=== PATIENT | female | born 1995 | race Caucasian/White ===

== ENCOUNTER 2025-01-06 05:29 | Emergency (ER) | payer MEDICAID ==
[2025-01-06 05:48] LABS: APPEARANCE,URINE SLT CLOUDY; GLUCOSE,URINE NEGATIVE (NEGATIVE); OCCULT BLOOD,URINE NEGATIVE (NEGATIVE)
[2025-01-06 05:59] LABS: EPITHELIAL CELLS,URINE MODERATE (NONE-FEW)
[2025-01-06 06:03] LABS: BASOPHILS ABSOLUTE AUTO 0.04 K/uL (0.00-0.20); BASOPHILS PERCENT AUTO 0.4 % (0.0-1.0); EOSINOPHILS ABSOLUTE AUTO 0.27 K/uL (0.00-0.45); EOSINOPHILS PERCENT AUTO 2.8 % (0.0-6.0); IMMATURE GRAN ABSOLUTE AUTO 0.04 K/uL (0.00-0.05); IMMATURE GRAN PERCENT AUTO 0.4 % (0.0-0.4); LYMPHOCYTES ABSOLUTE AUTO 2.18 K/uL (1.00-4.80); LYMPHOCYTES PERCENT AUTO 22.7 % (24.0-44.0); MEAN PLATELET VOLUME 9.6 fL (9.4-12.3); MONOCYTES ABSOLUTE AUTO 0.61 K/uL (0.00-0.80); MONOCYTES PERCENT AUTO 6.3 % (0.0-8.0); NEUTROPHILS ABSOLUTE AUTO 6.47 K/uL (1.80-7.70); NEUTROPHILS PERCENT AUTO 67.4 % (41.0-71.0); NRBC ABSOLUTE 0.00 K/uL (0.00-0.02); NRBC PERCENT 0.0 /100WBC (0.0-0.2); PLATELET COUNT,PLT 314 K/uL (150-400); RED BLOOD CELL COUNT 3.69 M/uL (4.10-5.30); WHITE BLOOD CELL COUNT,WBC 9.61 K/uL (3.9-11.3)
[2025-01-06 06:36] LABS: A/G RATIO 0.7 (0.9-1.6); ALANINE AMINOTRANSFERASE,ALT 27 IU/L (14-63); ASPARTATE AMNIOTRANSFERASE,AST 16 IU/L (15-37); BILIRUBIN TOTAL 0.2 mg/dL (0.2-1.0); BLOOD UREA NITROGEN,BUN 5 mg/dL (7.0-18.0); CARBON DIOXIDE,CO2 23.0 mmol/L (21.0-32.0); CHLORIDE,CL 101 mmol/L (98-107); CREATININE 0.7 mg/dL (0.6-1.0); GLUCOSE RANDOM 104 mg/dL (74-106); POTASSIUM,K 3.7 mmol/L (3.5-5.1); PRO B-TYPE NATRIUR PEPT,BNPPRO 20 pg/mL (0-125); PROTEIN TOTAL,TP 7.2 g/dL (6.4-8.2); SODIUM,NA 136 mmol/L (136-145)
[2025-01-06 06:52] LABS: TSH ULTRASENSITIVE 5.05 uIU/mL (0.36-3.74)
[2025-01-06 06:54] LABS: ESTIMATED GFR 119 mL/min (>60); HCG QUANTITATIVE 14075.0 mIU/mL
[2025-01-06 08:03] LABS: T4 FREE 0.62 ng/dL (0.76-1.46)
== END 2025-01-06 08:17 | disposition home or self-care (01) ==
LOC: MW.ED 05:29
DX: O23.42 Unspecified infection of urinary tract in pregnancy, second trimester (principal); N39.0 Urinary tract infection, site not specified; O99.891 Other specified diseases and conditions complicating pregnancy; R00.2 Palpitations; R20.2 Paresthesia of skin; Z3A.21 21 weeks gestation of pregnancy; Z79.899 Other long term (current) drug therapy; Z86.16 Personal history of COVID-19
CPT/HCPCS: 36415; 76815; 80053; 81001; 83690; 83735; 83880; 84439; 84443; 84484; 84702; 85025; 87086; 93005; 96360; 99285; A9270; J7030; 93010; 99283

== ENCOUNTER 2025-03-09 19:32 | Emergency (ER) | payer MEDICAID ==
[2025-03-09] MEDS: Amoxicillin/Clavulanate K 875-125 MG Tab PO ONE (22:06)
== END 2025-03-09 22:23 | disposition home or self-care (01) ==
LOC: MW.ED 19:32
DX: J06.9 Acute upper respiratory infection, unspecified (principal)
CPT/HCPCS: 71046; 87428; 87651; 99283; A9270

== ENCOUNTER 2025-05-13 23:09 | Emergency (ER) | payer MEDICAID ==
[2025-05-14] MEDS: cefTRIAXone 1 GM in Water For Injection, Sterile 10 ML IVPUSH ONE (00:31)
[2025-05-14 00:58] LABS: BASOPHILS ABSOLUTE AUTO 0.06 K/uL (0.00-0.20); BASOPHILS PERCENT AUTO 0.5 % (0.0-1.0); EOSINOPHILS ABSOLUTE AUTO 0.27 K/uL (0.00-0.45); EOSINOPHILS PERCENT AUTO 2.2 % (0.0-6.0); IMMATURE GRAN ABSOLUTE AUTO 0.07 K/uL (0.00-0.05); IMMATURE GRAN PERCENT AUTO 0.6 % (0.0-0.4); LYMPHOCYTES ABSOLUTE AUTO 2.13 K/uL (1.00-4.80); LYMPHOCYTES PERCENT AUTO 17.7 % (24.0-44.0); MEAN PLATELET VOLUME 10.4 fL (9.4-12.3); MONOCYTES ABSOLUTE AUTO 0.56 K/uL (0.00-0.80); MONOCYTES PERCENT AUTO 4.6 % (0.0-8.0); NEUTROPHILS ABSOLUTE AUTO 8.97 K/uL (1.80-7.70); NEUTROPHILS PERCENT AUTO 74.4 % (41.0-71.0); NRBC ABSOLUTE 0.00 K/uL (0.00-0.02); NRBC PERCENT 0.0 /100WBC (0.0-0.2); PLATELET COUNT,PLT 347 K/uL (150-400); RED BLOOD CELL COUNT 4.23 M/uL (4.10-5.30); WHITE BLOOD CELL COUNT,WBC 12.06 K/uL (3.9-11.3)
[2025-05-14] MEDS: Dexamethasone Sod Phos Preservative Free 10 MG/ML Vial IVPUSH ONE (01:13)
[2025-05-14 01:23] LABS: A/G RATIO 0.5 (0.9-1.6); ALANINE AMINOTRANSFERASE,ALT 20.0 IU/L (14-63); ASPARTATE AMNIOTRANSFERASE,AST 24.0 IU/L (15-37); BILIRUBIN TOTAL 0.3 mg/dL (0.2-1.0); BLOOD UREA NITROGEN,BUN 5.0 mg/dL (7.0-18.0); CARBON DIOXIDE,CO2 23.5 mmol/L (21.0-32.0); CHLORIDE,CL 101.0 mmol/L (98-107); CREATININE 0.7 mg/dL (0.6-1.0); EST CRCL DRUG DOSING (CG) 114.28 mL/min; GLUCOSE RANDOM 89.0 mg/dL (74-106); POTASSIUM,K 4.0 mmol/L (3.5-5.1); PROTEIN TOTAL,TP 7.4 g/dL (6.4-8.2); SODIUM,NA 133.0 mmol/L (136-145)
[2025-05-14 01:39] LABS: ESTIMATED GFR 119.0 mL/min (>60)
== END 2025-05-14 01:22 | disposition home or self-care (01) ==
LOC: MW.ED 23:09
DX: J02.8 Acute pharyngitis due to other specified organisms (principal); Z79.899 Other long term (current) drug therapy
CPT/HCPCS: 36415; 80053; 83690; 85025; 87428; 87651; 96374; 96375; 99283; J0696; J1100

== ENCOUNTER 2025-05-15 19:02 | Inpatient (IN) | payer MEDICAID ==
[2025-05-16] MEDS ORDERED: Sodium Chloride 0.9% 10 ML Syringe FLUSH PRN (01:51)
[2025-05-16] MEDS ORDERED: Butorphanol 1 MG/ML SDV IVPUSH PRN (01:51)
[2025-05-16] MEDS ORDERED: Sodium Chloride 0.9% 2.5 ML Syringe FLUSH PRN (01:51)
[2025-05-16] MEDS ORDERED: Water For Irrigation,Sterile 1,000 ML Container IRR PRN (01:51)
[2025-05-16] MEDS ORDERED: Carboprost Tromethamine 250 MCG/1 mL Vial IM PRN (01:51)
[2025-05-16] MEDS ORDERED: Terbutaline 1 MG/ML SDV SUBCUT PRN (01:58)
[2025-05-16] MEDS: Misoprostol 25 MCG (1/4 of 100 MCG) Tab PO PRN (03:00)
[2025-05-16] MEDS: Lactated Ringers 1,000 ML IV SCH (03:00)
[2025-05-16] MEDS: Misoprostol 25 MCG (1/4 of 100 MCG) Tab VAG PRN (03:05)
[2025-05-16 03:08] LABS: MEAN PLATELET VOLUME 10.2 fL (9.4-12.3); NRBC ABSOLUTE 0.00 K/uL (0.00-0.02); NRBC PERCENT 0.0 /100WBC (0.0-0.2); PLATELET COUNT,PLT 317 K/uL (150-400); RED BLOOD CELL COUNT 4.14 M/uL (4.10-5.30); WHITE BLOOD CELL COUNT,WBC 9.86 K/uL (3.9-11.3)
[2025-05-16 03:30] LABS: A/G RATIO 0.6 (0.9-1.6); ALANINE AMINOTRANSFERASE,ALT 22.0 IU/L (14-63); ASPARTATE AMNIOTRANSFERASE,AST 29.0 IU/L (15-37); BILIRUBIN TOTAL 0.3 mg/dL (0.2-1.0); BLOOD UREA NITROGEN,BUN 7.0 mg/dL (7.0-18.0); CARBON DIOXIDE,CO2 22.7 mmol/L (21.0-32.0); CHLORIDE,CL 103.0 mmol/L (98-107); CREATININE 0.5 mg/dL (0.6-1.0); EST CRCL DRUG DOSING (CG) 159.99 mL/min; GLUCOSE RANDOM 85.0 mg/dL (74-106); POTASSIUM,K 4.4 mmol/L (3.5-5.1); PROTEIN TOTAL,TP 6.8 g/dL (6.4-8.2); SODIUM,NA 136.0 mmol/L (136-145)
[2025-05-16 03:34] LABS: ESTIMATED GFR 129.0 mL/min (>60)
[2025-05-16] MEDS: Ropivacaine HCl/PF 400 MG in Premix Bag 1 BAG EPIDUR SCH (06:25)
[2025-05-16] MEDS ORDERED: ePHEDrine 50 MG/ML SDV IVPUSH PRN (06:29)
[2025-05-16] MEDS ORDERED: dexmedeTOMIDine HCl 200 MCG/2 ML SDV EPIDUR SCH (06:30)
[2025-05-16] MEDS: Oxytocin/0.9 % Sodium Chloride 30 UNIT/500 ML BAG IV SCH (12:19)
[2025-05-16] MEDS: Ondansetron 4 MG/2 ML SDV IVPUSH PRN (13:00)
[2025-05-16] MEDS: Codeine/guaiFENesin 10-100 MG/5 ML Syrup 5 ML Cup PO PRN (13:46)
[2025-05-16] MEDS ORDERED: Aluminum Hydroxide/Magnesium Hydroxide/Simethicone Susp 30 ML Cup PO PRN (16:54)
[2025-05-16] MEDS ORDERED: Lanolin 100% Cream 7 GM Tube TOP PRN (16:54)
[2025-05-16 17:02] LABS: PH,UMBILICAL ARTERIAL 7.2 (7.18-7.38); PH,UMBILICAL VENOUS 7.32 (7.25-7.45)
[2025-05-16] MEDS: Amoxicillin/Clavulanate K 875-125 MG Tab PO SCH (20:54)
[2025-05-16] MEDS: Witch Hazel Medicated Pads 40/Jar TOP PRN (20:55)
[2025-05-16] MEDS: Benzocaine/Menthol 20%-0.5% Spray 78 GM Cannister TOP PRN (20:55)
[2025-05-17 05:55] LABS: MEAN PLATELET VOLUME 9.5 fL (9.4-12.3); NRBC ABSOLUTE 0.00 K/uL (0.00-0.02); NRBC PERCENT 0.0 /100WBC (0.0-0.2); PLATELET COUNT,PLT 276 K/uL (150-400); RED BLOOD CELL COUNT 4.05 M/uL (4.10-5.30); WHITE BLOOD CELL COUNT,WBC 11.53 K/uL (3.9-11.3)
[2025-05-17] MEDS: Codeine/guaiFENesin 10-100 MG/5 ML Syrup 5 ML Cup PO PRN (20:11)
== END 2025-05-18 14:38 | disposition home or self-care (01) | DRG 805 ==
LOC: MW.OBCHECK 19:02 → MW.OB 21:29 → OBSVTOIN 05-16 16:54 → MW.OB 05-16 21:08
PROVIDERS: ADMIT Obstetrics & Gynecology; ATTEND Obstetrics & Gynecology
PROC: 10E0XZZ Delivery of Products of Conception, External Approach (ICD-10-PCS; principal; 2025-05-16)
PROC: 3E0DXGC Introduction of Other Therapeutic Substance into Mouth and Pharynx, External Approach (ICD-10-PCS; 2025-05-16)
PROC: 3E033VJ Introduction of Other Hormone into Peripheral Vein, Percutaneous Approach (ICD-10-PCS; 2025-05-16)
PROC: 10907ZC Drainage of Amniotic Fluid, Therapeutic from Products of Conception, Via Natural or Artificial Opening (ICD-10-PCS; 2025-05-16)
PROC: 0HQ9XZZ Repair Perineum Skin, External Approach (ICD-10-PCS; 2025-05-16)
PROC: 3E0R3BZ Introduction of Anesthetic Agent into Spinal Canal, Percutaneous Approach (ICD-10-PCS; 2025-05-16)
PROC: 00HU33Z Insertion of Infusion Device into Spinal Canal, Percutaneous Approach (ICD-10-PCS; 2025-05-16)
PROC: 3E0334Z Introduction of Serum, Toxoid and Vaccine into Peripheral Vein, Percutaneous Approach (ICD-10-PCS; 2025-05-16)
DX: O48.0 Post-term pregnancy (principal); J18.9 Pneumonia, unspecified organism; Z37.0 Single live birth; Z3A.40 40 weeks gestation of pregnancy; O36.8130 Decreased fetal movements, third trimester, not applicable or unspecified; O99.824 Streptococcus B carrier state complicating childbirth; O70.0 First degree perineal laceration during delivery; O69.1XX0 Labor and delivery complicated by cord around neck, with compression, not applicable or unspecified; O99.214 Obesity complicating childbirth; E66.812 Obesity, class 2; O99.52 Diseases of the respiratory system complicating childbirth
CPT/HCPCS: 01967; 36415; 51702; 59025; 59409; 71046; 71046-26; 76815; 76815-26; 76819; 76819-26; 80053; 82803; 85027; 85460; 86592; 86850; 86900; 86901; A9270-GY; J0290; J2371; J2405; J2590; J2791; J2795; J7120